=== PATIENT | male | born 1980 | race Caucasian/White ===

== ENCOUNTER 2019-01-25 10:49 | Emergency (ER) | payer SELFPAY ==
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
[2019-01-25 11:42] LABS: ABS Lymphocytes 1.4 10^3/ul (1.0-4.8); ABS Monocytes 1.1 10^3/ul (0-0.8); ABS Neutrophils 8.5 10^3/ul (1.5-7.7); Eosinophil % 0.1 %; Hematocrit 47 % (42-52); Lymphocyte % 12.8 %; Mean Corpuscular HGB Conc 34 g/dL (31-36); Mean Corpuscular Hemoglobin 32 pg (27-31); Mean Corpuscular Volume 93 fL (80-94); Mean Platelet Volume 8.8 fL (7.4-10.4); Platelet Count 290 10^3/uL (150-450); Red Blood Count 5.01 10^6 /uL (4.18-5.48); Red Cell Distribution Width 14 % (10-15)
[2019-01-25] MEDS: Iodixanol* (CONTRAST) 320 MG/ML 100 ML SDV IV ONE (11:46)
[2019-01-25 11:52] LABS: INR 1.01 (0.82-1.09)
[2019-01-25 11:59] LABS: Albumin 4.5 g/dL (3.2-5.2); Albumin/Globulin Ratio 1.7 (1-3); BUN/Creatinine Ratio 10.6 (8-20); Calcium 9.3 mg/dL (8.6-10.3); EGFR African American 95.7 (>60); EGFR Non-African American 79.1 (>60); Globulin 2.6 g/dL (2-4); Potassium 4.2 mmol/L (3.5-5.0); Total Protein 7.1 g/dL (6.4-8.9)
== END 2019-01-25 13:30 | disposition home or self-care (01) ==
LOC: ED 10:49
DX: S46.912A Strain of unspecified muscle, fascia and tendon at shoulder and upper arm level, left arm, initial encounter (principal); V49.50XA Passenger injured in collision with unspecified motor vehicles in traffic accident, initial encounter; Y92.410 Unspecified street and highway as the place of occurrence of the external cause; F17.200 Nicotine dependence, unspecified, uncomplicated; M50.30 Other cervical disc degeneration, unspecified cervical region; M48.02 Spinal stenosis, cervical region
CPT/HCPCS: 36415; 70450; 71260; 72125; 80053; 83605; 85025; 85610; 99283; Q9967

== ENCOUNTER 2021-05-23 12:44 | Inpatient (IN) ==
[2021-05-23] MEDS ORDERED: Albuterol/Ipratropium NEB.SOL (2.5/0.5 MG) 3 ML NEB.SOLN INH ONE ×3 (12:46→12:47)
[2021-05-23] MEDS ORDERED: Albuterol/Ipratropium NEB.SOL (2.5/0.5 MG) 3 ML NEB.SOLN ONE (12:47)
[2021-05-23] MEDS ORDERED: methylPREDNISolone 125 mg 2 ML VIAL IV ONE (12:47)
[2021-05-23] MEDS ORDERED: methylPREDNISolone 125 mg 2 ML VIAL ONE (12:48)
[2021-05-23 13:06] LABS: ABS Basophils 0.1 10^3/ul (0-0.2); ABS Eosinophils 0.4 10^3/ul (0-0.6); ABS Lymphocytes 2.5 10^3/ul (1.0-4.8); ABS Monocytes 0.7 10^3/ul (0-0.8); ABS Neutrophils 3.6 10^3/ul (1.5-7.7); Eosinophil % 5.3 %; Hematocrit 46 % (42-52); Hemoglobin 15.4 g/dL (14.0-18.0); Lymphocyte % 34.6 %; Mean Corpuscular HGB Conc 33 g/dL (31-36); Mean Corpuscular Hemoglobin 31 pg (27-31); Mean Corpuscular Volume 94 fL (80-94); Mean Platelet Volume 8.4 fL (7.4-10.4); Platelet Count 379 10^3/uL (150-450); Red Blood Count 4.92 10^6 /uL (4.18-5.48); Red Cell Distribution Width 14 % (10-15); White Blood Count 7.2 10^3/uL (3.5-10.8)
[2021-05-23] MEDS ORDERED: Albuterol 0.5% CONC CONTINUOUS NEB.SOL 5 mg/ml 20 ml BOT INH ONE ×2 (13:08→15:43)
[2021-05-23] MEDS ORDERED: Magnesium Sulfate 2 gm BAG 2 GM/50 ML BAG IVPB ONE (13:09)
[2021-05-23] MEDS ORDERED: Terbutaline INJ 1 MG/ML 1 ml VIAL SUBCUT ONE (13:10)
[2021-05-23 13:44] LABS: Albumin 4.8 g/dL (3.2-5.2); Albumin/Globulin Ratio 1.8 (1-3); C Reactive Protein 1.5 mg/L (<8.01); Calcium 9.8 mg/dL (8.6-10.3); Globulin 2.6 g/dL (2-4); Potassium 4.3 mmol/L (3.5-5.0); Total Bilirubin 0.4 mg/dL (0.2-1.0); Total Protein 7.4 g/dL (6.4-8.9); eGFR CKD-EPI 91.9 (>60)
[2021-05-23 13:50] LABS: PCO2 Arterial 35 mmHg (35-45)
[2021-05-23 13:52] LABS: PO2 Arterial 55 mmHg (80-100)
[2021-05-23] MEDS ORDERED: Dextrose 50% Syringe 50 ml 25 GM/50 ML SYRINGE IV PUSH PRN (16:44)
[2021-05-23] MEDS ORDERED: Azithromycin 500 mg/250 ml NS 500 MG/250 ML BAG IVPB SCH (17:00)
[2021-05-23] MEDS ORDERED: Albuterol/Ipratropium NEB.SOL (2.5/0.5 MG) 3 ML NEB.SOLN INH SCH (17:00)
[2021-05-23] MEDS: methylPREDNISolone 125 mg 2 ML VIAL IV SCH (18:10)
[2021-05-23] MEDS: Pantoprazole VIAL 40 MG VIAL IV SCH (18:11)
[2021-05-23] MEDS: Enoxaparin 40 MG/0.4 ML SYR SUBCUT SCH (18:11)
[2021-05-23] MEDS: Albuterol/Ipratropium NEB.SOL (2.5/0.5 MG) 3 ML NEB.SOLN INH SCH ×2 (19:12→23:25)
[2021-05-23] MEDS: Nicotine PATCH 21 MG/24 HR PATCH TRANSDERM SCH (19:52)
[2021-05-24] MEDS: Albuterol/Ipratropium NEB.SOL (2.5/0.5 MG) 3 ML NEB.SOLN INH SCH ×4 (04:32→14:58)
[2021-05-24] MEDS: methylPREDNISolone 125 mg 2 ML VIAL IV SCH ×2 (05:24→17:13)
[2021-05-24] MEDS: Pantoprazole VIAL 40 MG VIAL IV SCH (09:37)
[2021-05-24] MEDS: Nicotine PATCH 21 MG/24 HR PATCH TRANSDERM SCH (09:38)
[2021-05-24] MEDS ORDERED: Thiamine 100 MG/ML 2 ml VIAL (200 mg) IM ONE (09:44)
[2021-05-24] MEDS ORDERED: Lorazepam PYXIS KEY PRN (09:54)
[2021-05-24] MEDS ORDERED: LORazepam 2 mg VIAL 1 ml IV PUSH SCH ×3 (10:00)
[2021-05-24] MEDS: Multivitamins/Minerals TAB PO SCH (10:16)
[2021-05-24] MEDS: Enoxaparin 40 MG/0.4 ML SYR SUBCUT SCH (17:13)
[2021-05-24] MEDS: Albuterol/Ipratropium NEB.SOL (2.5/0.5 MG) 3 ML NEB.SOLN INH PRN (18:10)
[2021-05-25] MEDS: methylPREDNISolone 125 mg 2 ML VIAL IV SCH (05:26)
[2021-05-25] MEDS: Multivitamins/Minerals TAB PO SCH (08:39)
[2021-05-25] MEDS: Nicotine PATCH 21 MG/24 HR PATCH TRANSDERM SCH (08:39)
[2021-05-25] MEDS: Albuterol/Ipratropium NEB.SOL (2.5/0.5 MG) 3 ML NEB.SOLN INH PRN (10:50)
[2021-05-25] MEDS ORDERED: Mometasone 220 MCG MDI INH SCH (11:40)
[2021-05-25] MEDS ORDERED: Albuterol HFA INHALER 8 gm MDI INH SCH (11:40)
[2021-05-25] MEDS ORDERED: Nicotine GUM 4MG FRUIT FLAVOR PO PRN (12:20)
[2021-05-25] MEDS ORDERED: Nicotine PATCH 21 MG/24 HR PATCH TRANSDERM SCH (13:00)
[2021-05-25 14:51] VITALS: BP 113/72
== END 2021-05-25 14:17 | disposition home or self-care (01) | DRG 189 ==
LOC: ED 12:44 → SUATTDRO 17:45 → ICU 17:45 → MEDTELE 05-24 10:35
PROVIDERS: ADMIT Internal Medicine; ATTEND Internal Medicine